=== PATIENT | male | born 1950 | race Caucasian/White ===

== ENCOUNTER 2022-04-06 10:55 | Emergency (ER) | payer MEDICARE, BC, SELFPAY ==
[2022-04-06] VITALS (32 sets, daily range): BP systolic 132–157; BP diastolic 74–95; PULSE 47–58; RESP 12–18; TEMP 36; O2SAT 95–99; BMI 27.6
--- NOTE | 2022-04-06 11:06 | ED_ITS ---
HPI - Chest Pain General Time Seen by Provider: 11:15 Date Seen: 04/06/22 Chief Complaint: Chest Pain Stated Complaint: Sever acid reflux Time Seen by Provider: 04/06/22 11:00 Source: patient, RN notes reviewed and old records reviewed Mode of arrival: ambulatory Limitations: no limitations History of Present Illness HPI narrative: Claudio is a very pleasant 71-year-old male with history of cardiac ablation secondary to arrhythmia, known ?valve issue?, as well as recent COVID in early February who comes to the emergency room for evaluation regarding chest pain. S tates that he did not feel well last night and thought that this was attributed to his GERD which she does have and is treated with a PPI. He states that he took Maalox before bed and slept good overnight. He says this morning he had the discomfort left anterior chest and took his antacid. Unfortunately did not help. He denies shortness of breath but does agree that he has some shortness of breath with activity but notes that he has been feeling this way since he had COVID 6 weeks ago. He notes that initially he still had a lingering cough although the phlegm has cleared up in the past week. He notes that his dizziness occasionally continues. Deep breathing does not increases discomfort. Does not improve his discomfort. He is wondering if perhaps this has something to do with a valve. He states that this past fall he had an appointment with his paper cup machine operator and was told that he has a valve issue that will need to be addressed in the spring. We are trying to get a hold of those records. Patient also notes that he has a history of colitis and has been experimenting with various medications. He states that medications often cause him dizziness. He has had no recent fever and denies any recent trauma. He has not taken any aspirin this morning Related Data Allergies Allergy/AdvReac Type Severity Reaction Status Date / Time Sulfa (Sulfonamide Allergy Intermediate Verified 04/06/22 11:16 Antibiotics) Review of Systems Status of ROS Reports: 10 or more systems reviewed and unremarkable except as noted in History and below Const Denies: fever, chills or fatigue Eyes Denies: change in vision ENMT Reports: throat pain (Irritation from coughing); Denies: neck pain, throat swelling or difficulty swallowing Cardio Reports: chest pain and shortness of breath with exertion; Denies: palpitations or swelling of feet/ankles Resp Reports: shortness of breath and cough GI Denies: abdominal pain, nausea, vomiting, diarrhea or difficulty swallowing Musculo Denies: neck pain or extremity pain Integ/Breast Denies: rash Neuro Reports: numbness in extremities (Chronic neuropathy); Denies: headache Psych Reports: anxiety Endo Denies: fatigue Allergy/Immuno Denies: throat swelling PFSH PFSH Social History Smoking Status: Never smoker How often do you have a drink containing alcohol: monthly or less How many standard drinks containing alcohol do you have on a typical day: 1 or 2 How often do you have six or more drinks on one occasion: Never AUDIT-C Alcohol total score: 1 Non-prescribed substance use: denies use Exam Narrative Exam Narrative: According to records: History of paroxysmal atrial fibrillation status post ablation History of of aortic valve stenosis History of elevated coronary artery calcium score Ulcerative colitis History of H pylori Ali History of neuropathy History of anxiety Const Vital Signs, click to edit/add: Vital Signs - 24 hr 04/06/22 11:05 04/06/22 12:00 04/06/22 12:18 Temperature 96.8 F L Pulse Rate 52 L Pulse Rate [Pulse Oximeter] 56 L 56 L Respiratory Rate 18 12 Blood Pressure Blood Pressure [Left Upper Arm] 157/79 H 136/76 Pulse Oximetry 98 97 95 Oxygen Delivery Method Room Air Room Air 04/06/22 12:30 04/06/22 12:33 04/06/22 11:30 Temperature Pulse Rate 50 L 52 L Pulse Rate [Pulse Oximeter] 57 L Respiratory Rate 13 Blood Pressure 149/74 H Blood Pressure [Left Upper Arm] 156/80 H Pulse Oximetry 97 97 98 Oxygen Delivery Method Room Air 04/06/22 12:34 04/06/22 12:45 04/06/22 13:00 Temperature Pulse Rate 56 L 53 L 53 L Pulse Rate [Pulse Oximeter] Respiratory Rate Blood Pressure Blood Pressure [Left Upper Arm] Pulse Oximetry 96 98 97 Oxygen Delivery Method 04/06/22 13:02 04/06/22 13:03 04/06/22 13:15 Temperature Pulse Rate 55 L 54 L 54 L Pulse Rate [Pulse Oximeter] Respiratory Rate Blood Pressure 132/76 Blood Pressure [Left Upper Arm] Pulse Oximetry 98 98 98 Oxygen Delivery Method 04/06/22 14:22 04/06/22 14:30 04/06/22 14:35 Temperature Pulse Rate 53 L 52 L 49 L Pulse Rate [Pulse Oximeter] Respiratory Rate Blood Pressure Blood Pressure [Left Upper Arm] Pulse Oximetry 97 97 97 Oxygen Delivery Method 04/06/22 14:44 04/06/22 14:45 04/06/22 15:00 Temperature Pulse Rate 52 L 52 L 47 L Pulse Rate [Pulse Oximeter] Respiratory Rate Blood Pressure 144/78 H Blood Pressure [Left Upper Arm] Pulse Oximetry 98 98 96 Oxygen Delivery Method 04/06/22 15:02 04/06/22 15:03 04/06/22 15:15 Temperature Pulse Rate 48 L 49 L 48 L Pulse Rate [Pulse Oximeter] Respiratory Rate Blood Pressure 137/81 Blood Pressure [Left Upper Arm] Pulse Oximetry 98 98 97 Oxygen Delivery Method 04/06/22 15:33 04/06/22 15:34 04/06/22 15:45 Temperature Pulse Rate 52 L 51 L Pulse Rate [Pulse Oximeter] Respiratory Rate Blood Pressure 141/95 H Blood Pressure [Left Upper Arm] Pulse Oximetry 97 98 Oxygen Delivery Method 04/06/22 16:00 04/06/22 16:05 04/06/22 16:15 Temperature Pulse Rate 57 L 58 L 56 L Pulse Rate [Pulse Oximeter] Respiratory Rate Blood Pressure Blood Pressure [Left Upper Arm] Pulse Oximetry 99 97 98 Oxygen Delivery Method 04/06/22 16:30 04/06/22 16:35 04/06/22 16:45 Temperature Pulse Rate 55 L 53 L 54 L Pulse Rate [Pulse Oximeter] Respiratory Rate Blood Pressure Blood Pressure [Left Upper Arm] Pulse Oximetry 98 97 97 Oxygen Delivery Method Patient is alert and oriented. Very well-spoken gentleman. Does not appear to be in any acute distress but obviously somewhat anxious. Eyes are clear as is oral cavity. No exudate in the posterior oropharynx. Neck is supple without lymphadenopathy. Heart with a bradycardic rate normal rhythm. Says 3/6 systo lic murmur auscultated. Occasional split S2 Lungs are clear to auscultation Abdomen soft nontender Lower extremity show symmetrical pedal pulses with scant peripheral edema. Moving all extremities. Mentating normally. Documenting provider has reviewed patient's vital signs: yes Course Course Hospital Course: Differential diagnosis includes but is not limited to acute coronary syndrome, PE, aortic dissection, pneumonia, esophagitis, esophageal spasm with reflux, critical aortic valve stenosis. At this time IV will be placed. Will obtain chest x-ray, blood work to include CBC, comprehensive, CRP, D-dimer, troponin. Aspirin 324 p.o. x1. Patient declines any further pain medications Primary paper cup machine operator Dr. Arroyo at [facility] Reevaluation(s) Reevaluation #1: Patient notes that he is feeling improved. At this point he has only received p.o. aspirin. He will be undergoing CT of the chest given pain out of proportion to exam and reassuring EKG as well as troponin. He does have a mild elevation of D-dimer. PE study is currently pending and will give normal saline 500 mL for protection of kidneys. White count slightly depressed which is a common finding with COVID infection. Kidney function and LFTs as well as CRP all reassuring. Recheck of EKG and troponin at 1315. Reevaluation #2: 2nd EKG sinus bradycardia without any acute ST or T-wave changes and 2nd troponin is negative. Chest CT without evidence of PE or pneumonia. Currently awaiting phone call from cardiology. Consultations Consultation #1: [employer] informed of reassuring EKGs as well as negative cardiac enzymes. Also of note there was moderate LAD and mild circumflex/RCA calcification noted on CT. No other worrisome findings on CT. Time: 16:03 Vital Signs Vital signs: Initial Vital Signs Temperature 96.8 F L 04/06/22 11:05 Temperature Source Temporal Artery Scan 04/06/22 11:05 Pulse Rate 56 L 04/06/22 11:05 Respiratory Rate 18 04/06/22 11:05 Blood Pressure 157/79 H 04/06/22 11:05 Blood Pressure Mean 105 04/06/22 11:05 Blood Pressure Position Supine 04/06/22 11:05 Pulse Oximetry 98 04/06/22 11:05 Oxygen Delivery Method 04/06/22 11:05 Vital Signs Temperature 96.8 F L 04/06/22 11:05 Pulse Rate 56 L 04/06/22 11:05 Respiratory Rate 18 04/06/22 11:05 Blood Pressure 157/79 H 04/06/22 11:05 Pulse Oximetry 98 04/06/22 11:05 Oxygen Delivery Method 04/06/22 11:05 Temperature 96.8 F L 04/06/22 11:05 Pulse Rate 54 L 04/06/22 16:45 Respiratory Rate 12 04/06/22 12:00 Blood Pressure 141/95 H 04/06/22 15:33 Pulse Oximetry 97 04/06/22 16:45 Oxygen Delivery Method 04/06/22 12:00 MDM - Chest Pain MDM Narrative Medical decision making narrative: 1. Atypical chest pain-patient received 324 mg aspirin only in the ED. Claudio has 2 EKGs and cardiac enzymes that are very reassuring with no evidence of acute coronary syndrome. Third troponin was done per paper cup machine operator's request and was negative. This time was greater than 4 hour span. Patient has had resolution of his pain at this time. He did have Protonix prior to coming here. There is no evidence of PE, aortic dissection or pneumonia on CT. I did have the pleasur e of speaking to Cardiology Dr. Roberts. Follow-up will be with their primary MD Dr. Rosenberg at the [facility]. Cardiology request the scheduling of an outpatient echocardiogram and stress test. Of course, if patient worsens prior to this test I would like him to return to the ER. Would also ask that he only participate in low intensity activity. At this time suggest esophageal spasm or GERD as the cause of his discomfort. Pain was not reproducible with palpation to suggest intercostal inflammation. 2. Recent COVID-still has a cough but no evidence of pneumonia on x-ray. 3. History of GERD-patient will increase his Protonix to twice daily temporarily. 3. Disposition -home with his . Return for worsening or recurrent symptoms. Medical Records Data Attestation: I reviewed the patient's medical records. Lab Data Attestation: I reviewed the patient's lab results. Labs: Lab Results 04/06/22 04/06/22 04/06/22 Range/Units 11:40 11:40 11:40 WBC 4.10 L (4.50-11.00) K/uL RBC 3.93 L (4.30-5.90) m/uL Hgb 13.2 L (13.5-17.5) gm/dL Hct 38.8 (37.0-53.0) % MCV 99 (80-100) fL MCH 34 (26-34) pg MCHC 34 (32-36) gm/dL RDW Coeff of Jim 16.0 H (11.5-15.5) % Plt Count 257 (140-440) K/uL Neut % (Auto) 51.5 (42.0-72.0) % Lymph % (Auto) 30.0 (20-44) % Surry % (Auto) 7.1 (0.0-11.0) % Eos % (Auto) 10.5 H (0.0-7.0) % Baso % (Auto) 0.2 (0.0-3.0) % Neut # (Auto) 2.10 (1.7-7.0) K/uL Lymph # (Auto) 1.20 (0.90-2.90) K/uL Surry # (Auto) 0.30 (0.00-0.90) K/UL Eos # (Auto) 0.40 (0.00-0.50) K/uL Baso # (Auto) 0.00 (0.00-0.30) K/uL Abs Immat Gran (auto) 0.00 (0.00-0.30) K/uL Imm/Tot Granulo (auto) 0.7 % D-Dimer Quant (PE/DVT) 0.78 H (0.00-0.50) ug/ml Sodium 140 (135-149) mmol/L Potassium 4.5 (3.6-5.1) mmol/L Chloride 103 (96-114) mmol/L Carbon Dioxide 33 H (20-32) mmol/L BUN 17 (7-30) mg/dL Creatinine 0.8 (0.5-1.5) mg/dL Estimated Creat Clear 77.63 Estimated GFR 94 ml/min Glucose 82 (60-115) mg/dL Calcium 9.3 (8.4-10.6) mg/dL Total Bilirubin 0.9 (0.1-1.5) mg/dL AST 28 (12-35) U/L ALT 21 (4-50) U/L Alkaline Phosphatase 65 (40-150) U/L C-Reactive Protein < 0.5 L (0.5-1.0) mg/dL Total Protein 7.2 (6.0-8.3) g/dL Albumin 4.5 (3.3-5.0) g/dL Influenza Type A Ag (Negative) Influenza Type B Ag (Negative) SARS-CoV-2 Ag (Rapid) POC Troponin I (0.01-0.04) ng/ml 04/06/22 04/06/22 04/06/22 Range/Units 11:40 12:08 12:08 WBC (4.50-11.00) K/uL RBC (4.30-5.90) m/uL Hgb (13.5-17.5) gm/dL Hct (37.0-53.0) % MCV (80-100) fL MCH (26-34) pg MCHC (32-36) gm/dL RDW Coeff of Jim (11.5-15.5) % Plt Count (140-440) K/uL Neut % (Auto) (42.0-72.0) % Lymph % (Auto) (20-44) % Surry % (Auto) (0.0-11.0) % Eos % (Auto) (0.0-7.0) % Baso % (Auto) (0.0-3.0) % Neut # (Auto) (1.7-7.0) K/uL Lymph # (Auto) (0.90-2.90) K/uL Surry # (Auto) (0.00-0.90) K/UL Eos # (Auto) (0.00-0.50) K/uL Baso # (Auto) (0.00-0.30) K/uL Abs Immat Gran (auto) (0.00-0.30) K/uL Imm/Tot Granulo (auto) % D-Dimer Quant (PE/DVT) (0.00-0.50) ug/ml Sodium (135-149) mmol/L Potassium (3.6-5.1) mmol/L Chloride (96-114) mmol/L Carbon Dioxide (20-32) mmol/L BUN (7-30) mg/dL Creatinine (0.5-1.5) mg/dL Estimated Creat Clear Estimated GFR ml/min Glucose (60-115) mg/dL Calcium (8.4-10.6) mg/dL Total Bilirubin (0.1-1.5) mg/dL AST (12-35) U/L ALT (4-50) U/L Alkaline Phosphatase (40-150) U/L C-Reactive Protein (0.5-1.0) mg/dL Total Protein (6.0-8.3) g/dL Albumin (3.3-5.0) g/dL Influenza Type A Ag Negative (Negative) Influenza Type B Ag Negative (Negative) SARS-CoV-2 Ag (Rapid) Cancelled POC Troponin I 0.00 L (0.01-0.04) ng/ml 04/06/22 04/06/22 Range/Units 13:15 16:20 WBC (4.50-11.00) K/uL RBC (4.30-5.90) m/uL Hgb (13.5-17.5) gm/dL Hct (37.0-53.0) % MCV (80-100) fL MCH (26-34) pg MCHC (32-36) gm/dL RDW Coeff of Jim (11.5-15.5) % Plt Count (140-440) K/uL Neut % (Auto) (42.0-72.0) % Lymph % (Auto) (20-44) % Surry % (Auto) (0.0-11.0) % Eos % (Auto) (0.0-7.0) % Baso % (Auto) (0.0-3.0) % Neut # (Auto) (1.7-7.0) K/uL Lymph # (Auto) (0.90-2.90) K/uL Surry # (Auto) (0.00-0.90) K/UL Eos # (Auto) (0.00-0.50) K/uL Baso # (Auto) (0.00-0.30) K/uL Abs Immat Gran (auto) (0.00-0.30) K/uL Imm/Tot Granulo (auto) % D-Dimer Quant (PE/DVT) (0.00-0.50) ug/ml Sodium (135-149) mmol/L Potassium (3.6-5.1) mmol/L Chloride (96-114) mmol/L Carbon Dioxide (20-32) mmol/L BUN (7-30) mg/dL Creatinine (0.5-1.5) mg/dL Estimated Creat Clear Estimated GFR ml/min Glucose (60-115) mg/dL Calcium (8.4-10.6) mg/dL Total Bilirubin (0.1-1.5) mg/dL AST (12-35) U/L ALT (4-50) U/L Alkaline Phosphatase (40-150) U/L C-Reactive Protein (0.5-1.0) mg/dL Total Protein (6.0-8.3) g/dL Albumin (3.3-5.0) g/dL Influenza Type A Ag (Negative) Influenza Type B Ag (Negative) SARS-CoV-2 Ag (Rapid) POC Troponin I 0.00 L 0.00 L (0.01-0.04) ng/ml Imaging Data Chest x-ray: Attestation: I have reviewed the pertinent imaging results. My impression: No noted infiltrates or acute findings by my read. CT scan - chest: Attestation: I have reviewed the pertinent imaging results. Radiologist's impression: here is no sign of pulmonary embolism, with normal enhancement and branching of the pulmonary arteries. A calcified granuloma is seen in the posterior and medial right lower lobe toward the lung base. There is mild linear density in the posterior lung bases, left greater than right consistent with scarring from previous inflammatory disease. The lungs are otherwise clear with no sign of significant infiltrate or mass. There is no sign of mediastinal or hilar mass or adenopathy. A calcified granuloma is present in the right subcarinal region. There is moderate LAD and mild LCX and RCA coronary calcification. Heart is otherwise normal in appearance. There is age appropriate appearance of the thoracic aorta and ascending great vessels. There is no sign of supraclavicular or axillary mass or adenopathy. The visualized superior liver, pancreas, kidneys, and adrenals are normal in appearance. Calcified granulomata seen in the spleen. The osseous structures are normal in appearance for the patient`s age. ? IMPRESSION: No sign of pulmonary embolism. Previous granulomatous disease. Mild left greater than right posterior basilar scarring. ECG Data Attestation: I personally reviewed and interpreted this ECG as follows: ECG interpretation date: 04/06/22 Interpretation: By my read EKG shows sinus bradycardia at a rate of 54. I do not note any acute ST or T-wave changes. QT corrected 415. EKG 2. Shows sinus bradycardia at a rate of [address] or T-wave changes. Discharge Plan Discharge Clinical Impression: Atypical chest pain, Cardiac murmur Patient Disposition: Home, Self-Care Condition: Improved Additional Instructions: 1. Take your prescription Protonix twice a day. 2. No intense activity until you are seen by Dr. Rosenberg [employer]'s request that you have an outpatient stress test and echocardiogram to reassess the aortic valve which currently shows moderate aortic stenosis. 3. Returns/seek medical attention for worsening symptoms. Follow Up/Referrals: Blayne Rosenberg MD [Primary Care Provider] - Stand Alone Forms: [employer] Info Instructions
--- NOTE | 2022-04-06 11:30 | CRLHL7_ITS ---
For Patients: As a result of the Cures Act, medical imaging exams and procedure reports are released immediately into your electronic medical record. You may view this report before your referring provider. If you have questions, please contact your health care provider. INDICATION: Chest pain TECHNIQUE: Chest 1 view COMPARISON: 04/03/2017 FINDINGS: Dependent scarring noted in both lung bases. Cardiac silhouette is upper limits of normal. There is slight tortuosity of the aorta. No pneumothorax or CHF. Degenerative changes. IMPRESSION: Bibasilar atelectasis/scarring. Dictated by Arturo Smith MD @ 04/08/2022 8:36:19 AM (Electronically Signed)
--- NOTE | 2022-04-06 11:45 | ED.NURSE ---
#20 SL placed L AC
[2022-04-06] MEDS: ASPIRIN 81 MG TAB.CHEW 324 MG PO (11:54)
[2022-04-06 12:05] LABS: Basophils Percent Auto 0.2 % (0.0-3.0); Eosinophils Percent Auto 10.5 % (0.0-7.0); Hematocrit 38.8 % (37.0-53.0); Hemoglobin* 13.2 gm/dL (13.5-17.5); Immature Granulocytes Pct Auto 0.7 %; Mean Corpuscular HGB Conc 34 gm/dL (32-36); Mean Corpuscular Hemoglobin 34 pg (26-34); Mean Corpuscular Volume 99 fL (80-100); Monocytes Percent Auto 7.1 % (0.0-11.0); Neutrophils Percent Auto 51.5 % (42.0-72.0); Platelet Count* 257 K/uL (140-440); Red Blood Count 3.93 m/uL (4.30-5.90)
[2022-04-06 12:16] LABS: Albumin* 4.5 g/dL (3.3-5.0); Chloride* 103 mmol/L (96-114)
[2022-04-06 12:17] LABS: Potassium* 4.5 mmol/L (3.6-5.1); Sodium* 140 mmol/L (135-149)
[2022-04-06 12:21] LABS: Alanine Aminotransferase* 21 U/L (4-50); Alkaline Phosphatase* 65 U/L (40-150); Aspartate Amino Transferase* 28 U/L (12-35); Bilirubin Total* 0.9 mg/dL (0.1-1.5); Blood Urea Nitrogen* 17 mg/dL (7-30); Calcium* 9.3 mg/dL (8.4-10.6); Carbon Dioxide* 33 mmol/L (20-32); Creatinine* 0.8 mg/dL (0.5-1.5); D Dimer Quantitative* 0.78 ug/ml (0.00-0.50); Est. Creatinine Clearance* 77.63; Estimated Glomerular Filt Rate 94 ml/min; Glucose* 82 mg/dL (60-115); Slide Review Reflex No; Total Protein* 7.2 g/dL (6.0-8.3)
[2022-04-06 12:34] LABS: C Reactive Protein* < 0.5 mg/dL (0.5-1.0)
--- NOTE | 2022-04-06 12:39 | CRLHL7_ITS ---
For Patients: As a result of the Century Cures Act, medical imaging exams and procedure reports are released immediately into your electronic medical record. You may view this report before your referring provider. If you have questions, please contact your health care provider. INDICATION: Chest pain. COMPARISON: None available. TECHNIQUE: CT examination of the chest was performed with the uneventful intravenous administration of 95 cc of Isovue 370 while 1.5 mm thick axial sections were obtained from above the apices of the lungs through the mid renal level. Please note that all CT scans at this facility use dose modulation, iterative reconstruction, and/or weight-based dosing when appropriate to reduce radiation dose to as low as reasonably achievable. FINDINGS: : There is no sign of pulmonary embolism, with normal enhancement and branching of the pulmonary arteries. A calcified granuloma is seen in the posterior and medial right lower lobe toward the lung base. There is mild linear density in the posterior lung bases, left greater than right consistent with scarring from previous inflammatory disease. The lungs are otherwise clear with no sign of significant infiltrate or mass. There is no sign of mediastinal or hilar mass or adenopathy. A calcified granuloma is present in the right subcarinal region. There is moderate LAD and mild LCX and RCA coronary calcification. Heart is otherwise normal in appearance. There is age appropriate appearance of the thoracic aorta and ascending great vessels. There is no sign of supraclavicular or axillary mass or adenopathy. The visualized superior liver, pancreas, kidneys, and adrenals are normal in appearance. Calcified granulomata seen in the spleen. The osseous structures are normal in appearance for the patient`s age. IMPRESSION: No sign of pulmonary embolism. Previous granulomatous disease. Mild left greater than right posterior basilar scarring. Please note that all CT scans at this facility use dose modulation, iterative reconstruction, and/or weight-based dosing when appropriate to reduce radiation dose to as low as reasonably achievable. Dictated by Vikash Salazar MD @ 04/06/2022 2:23:43 PM (Electronically Signed)
[2022-04-06 12:46] LABS: Influenza Type A Negative (Negative); Influenza Type B Negative (Negative)
== END 2022-04-06 17:22 | disposition home or self-care (01) ==
PROVIDERS: Emergency Provider Family Medicine; PCP Family Medicine
DX: R07.89 Other chest pain (principal); R01.1 Cardiac murmur, unspecified
CPT/HCPCS: 36415; 71045; 71260; 80053; 84484; 85025; 85379; 86140; 87426; 87804; 93005; 94761; 99285; A9270; Q9967

== ENCOUNTER 2022-04-23 10:28 | Outpatient (CLI) | payer MEDICARE, BC, SELFPAY | END 2022-04-23 10:29 | disposition home or self-care (01) | LOC: RAD 10:29 | PROVIDERS: PCP Family Medicine; Visit Provider Family Medicine | DX: I35.0 Nonrheumatic aortic (valve) stenosis (principal); I51.7 Cardiomegaly; I35.1 Nonrheumatic aortic (valve) insufficiency | CPT/HCPCS: 93306 ==

== ENCOUNTER 2023-01-15 08:58 | Observation (INO) | payer MEDICARE, BC, SELFPAY ==
[2023-01-15] VITALS (28 sets, daily range): BP systolic 118–165; BP diastolic 64–85; PULSE 42–65; RESP 14–20; TEMP 36–36.7; O2SAT 95–99; BMI 27.2; BMI 26.8
--- NOTE | 2023-01-15 09:16 | ED_ITS ---
HPI - Chest Pain General Time Seen by Provider: 09:16 Date Seen: 01/15/23 Chief Complaint: Chest Pain Stated Complaint: weakness,lightheaded, chest pains last night Time Seen by Provider: 01/15/23 09:08 Source: patient and RN notes reviewed Mode of arrival: ambulatory Limitations: no limitations History of Present Illness HPI narrative: This 72-year-old male is ambulatory to the ED accompanied by his with chest pain. He was at [employer], sleeping in their camper overnight. He was down at [employer] riding horse yesterday. There is no injury. He awoke last night with left shoulder pain, did not seem to matter how he moved his arm. When he awoke this morning around 7, had some mild substernal to left chest pain that seems to go into the left shoulder and arm. There is no shortness of breath. He states it is just mild maybe at most about a 2. It did not worsen walking in here today but he states he went slow. There is no associated GI symptoms. He was seen here in March of 2022 with atypical chest pain that was attributed to a GERD attack. He states this was much different and that was worse at that time. He did get the CT PE study done for an elevated D-dimer at that time and there was moderate LAD and mild circumflex and RCA calcification. This patient is also known to have severe aortic stenosis he a that cyst will that I 1999 to do with normal LV size, moderate increased wall thickness, normal global systolic function, EF 63%, normal RV size and function, mildly enlarged left atrium, aortic valve is calcified, severe stenosis and mild to moderate regurgitation, valve area is 1.05 cm2. He notes no respiratory symptoms with this. Does feel little dizzy today with it. He does not take any aspirin. Other past medical history is reported to be significant for history of cardiac ablation for arrhythmia, COVID February of 2022, GERD, history of colitis. Patient notes that he did just see the technician plant and maintenance 2 days ago, besides needing his aortic valve taking care of, she thought he may end up with a pacemaker as he is developing bradycardia. MD complaint: chest pain Related Data Home Medications Medication Instructions Recorded Confirmed balsalazide 750 mg capsule 2,250 mg PO 3XD 01/15/23 01/15/23 colestipol 1 gram tablet g PO 01/15/23 flecainide 50 mg tablet 50 mg PO Q12H 01/15/23 01/15/23 mercaptopurine 50 mg tablet 100 mg PO DAILY 01/15/23 01/15/23 mesalamine 1,000 mg rectal 1,000 mg IA QPM 01/15/23 01/15/23 suppository pantoprazole 40 mg tablet,delayed 40 mg PO BID 01/15/23 01/15/23 release rosuvastatin 10 mg tablet 10 mg PO QPM 01/15/23 01/15/23 Allergies Allergy/AdvReac Type Severity Reaction Status Date / Time Sulfa (Sulfonamide Allergy Intermediate Verified 04/06/22 11:16 Antibiotics) gabapentin AdvReac leg Verified 01/15/23 09:11 swelling sertraline AdvReac Verified 01/15/23 09:11 Review of Systems Status of ROS Reports: 6 or more systems reviewed and unremarkable except as noted in History and below PFSH PFS Social History Smoking Status: Never smoker Do you use any of these nicotine containing products: None Second hand tobacco smoke exposure: No How often do you have a drink containing alcohol: monthly or less How many standard drinks containing alcohol do you have on a typical day: 1 or 2 How often do you have six or more drinks on one occasion: Never AUDIT-C Alcohol total score: 1 Non-prescribed substance use: denies use Exam Const Vital Signs, click to edit/add: Vital Signs - 24 hr 01/15/23 09:13 01/15/23 09:15 Temperature 96.8 F L Pulse Rate [Right Pulse Oximeter] 53 L Respiratory Rate 14 Blood Pressure [Left Upper Arm] 151/73 H Pulse Oximetry 99 96 Oxygen Delivery Method Room Air Claudio is a very pleasant 72-year-old male ambulatory in the ED of his own accord. Sclera clear, pupils equal, conjugate gaze, speech is normal, symmetrical facial function. Neck is supple, do not appreciate any jugular venous distension, no cervical adenopathy or thyromegaly masses or nodules. He is able to sit up, lungs are clear, good air entry, no wheezing or crackles, no tachypnea. CV is slow but regular, harsh holosystolic murmur heard best along the right upper sternal border. He has normal S1 and S2, do not hear an S3 or S4. Abdomen is soft, no rebound or guarding, no organomegaly. He has no lower extremity edema but does wear compression stockings. I can mobilize his left shoulder and left upper extremity, cannot reproduce his pain. He has no palpable tenderness over the shoulder or the left chest wall, sternal area. Documenting provider has reviewed patient's vital signs: yes Course Course ED Course: Claudio will be monitored on cardiac monitoring and pulse oximetry. His initial EKG shows bradycardia but is otherwise stable. His symptoms are concerning for angina versus possible unstable angina in the setting of his aortic stenosis and calcifications seen on CT of his coronary arteries in March of 2022. Will rule out non STEMI with troponin. Other etiologies could be atypical chest pain, infectious etiology including but not limited to things like COVID or pneumonia. Will consider thromboembolic disease and do a screening D-dimer. He is exhibiting bradycardia at this time. Will get portable chest x-ray but do not have any clinical concern with his physical examination of congestive heart failure. Full appropriate complement of labs will be obtained. Reevaluation(s) Time of Reevaluation #1: 11:43 Reevaluation #1: Patient is getting a repeat EKG and troponin. Maybe still has some sense of chest discomfort, states he overall feels almost back to normal but has some global generalized body achiness today. He states the doctors tones take Tylenol but that never works. He does have some chronic foot and ankle issues. He just generally feels a bit more achy today. Will see where his 2nd troponin and follow-up EKG are. He is in a sinus bradycardia in the upper 40s and seems to be asymptomatic from it on the monitor when I am talking to him. Have reviewed that the labs and chest x-ray to this point are reassuringly normal. Time of Reevaluation #2: 12:20 Consultations Consultation #1: Spoke with Dr. Pfeiffer on-call Cardiology for [facility]. He thinks this patient should be monitored for 24 hours on telemetry and if stable can be DC to home. They will work to expedite his valve replacement on an outpatient basis. Obviously if complications we are to notify them. Did subsequently review this with the patient, he would prefer to go home but understands the rationale for keeping him and does agree to stay. Did subsequently speak to our hospitalist Dr. Mcdaniels and he accepts patient. Time: 12:43 Vital Signs Vital signs: Initial Vital Signs Temperature 96.8 F L 01/15/23 09:13 Temperature Source Temporal Artery Scan 01/15/23 09:13 Pulse Rate 53 L 01/15/23 09:13 Respiratory Rate 14 01/15/23 09:13 Blood Pressure 151/73 H 01/15/23 09:13 Blood Pressure Mean 99 01/15/23 09:13 Blood Pressure Position Sitting 01/15/23 09:13 Pulse Oximetry 99 01/15/23 09:13 Oxygen Delivery Method Room Air 01/15/23 09:13 Vital Signs Temperature 96.8 F L 01/15/23 09:13 Pulse Rate 53 L 01/15/23 09:13 Respiratory Rate 14 01/15/23 09:13 Blood Pressure 151/73 H 01/15/23 09:13 Pulse Oximetry 99 01/15/23 09:13 Oxygen Delivery Method Room Air 01/15/23 09:13 Temperature 96.8 F L 01/15/23 09:13 Pulse Rate 53 L 01/15/23 09:13 Respiratory Rate 14 01/15/23 09:13 Blood Pressure 151/73 H 01/15/23 09:13 Pulse Oximetry 96 01/15/23 09:15 Oxygen Delivery Method Room Air 01/15/23 09:13 MDM - Chest Pain Lab Data Attestation: I reviewed the patient's lab results. Labs: Lab Results 01/15/23 01/15/23 01/15/23 Range/Units 09:15 09:51 11:38 WBC 3.30 L (4.50-11.00) K/uL RBC 3.42 L (4.30-5.90) m/uL Hgb 12.7 L (13.5-17.5) gm/dL Hct 36.0 L (37.0-53.0) % MCV 105 H (80-100) fL MCH 37 H (26-34) pg MCHC 35 (32-36) gm/dL RDW Coeff of Jim 14.1 (11.5-15.5) % Plt Count 200 (140-440) K/uL Neut % (Auto) 64.5 (42.0-72.0) % Lymph % (Auto) 25.2 (20-44) % [place] % (Auto) 5.8 (0.0-11.0) % Eos % (Auto) 4.2 (0.0-7.0) % Baso % (Auto) 0.3 (0.0-3.0) % Neut # (Auto) 2.10 (1.7-7.0) K/uL Lymph # (Auto) 0.80 L (0.90-2.90) K/uL [place] # (Auto) 0.20 (0.00-0.90) K/UL Eos # (Auto) 0.10 (0.00-0.50) K/uL Baso # (Auto) 0.00 (0.00-0.30) K/uL Abs Immat Gran (auto) 0.00 (0.00-0.30) K/uL Imm/Tot Granulo (auto) 0.0 % Diff Slide Review Acceptable Review (Acceptable) D-Dimer Quant (PE/DVT) 0.54 H (0.00-0.50) ug/ml Sodium 141 (135-149) mmol/L Potassium 4.4 (3.6-5.1) mmol/L Chloride 105 (96-114) mmol/L Carbon Dioxide 29 (20-32) mmol/L Anion Gap 7 (7-15) mEq/L BUN 18 (7-30) mg/dL Creatinine 0.7 (0.5-1.5) mg/dL Estimated Creat Clear 76.49 Estimated GFR 97 ml/min Glucose 99 (60-115) mg/dL Lactate 0.9 (0.5-1.9) mmol/L Calcium 9.6 (8.4-10.6) mg/dL Magnesium 2.2 (1.5-2.6) mg/dL Total Bilirubin 1.3 (0.1-1.5) mg/dL AST 26 (12-35) U/L ALT 18 (4-50) U/L Alkaline Phosphatase 59 (40-150) U/L C-Reactive Protein < 0.5 L (0.5-1.0) mg/dL NT-Pro-B Natriuret Pep 121 pg/mL Total Protein 7.2 (6.0-8.3) g/dL Albumin 4.4 (3.3-5.0) g/dL SARS-CoV-2 (PCR) Negative SARS-CoV-2 (Negative) Influenza Type A (PCR) Negative PCR FLU A (Negative) Influenza Type B (PCR) Negative PCR FLU B (Negative) RSV (PCR) Negative PCR RSV (Negative) POC Troponin I 0.01 0.00 L (0.01-0.04) ng/ml Imaging Data Chest x-ray: Attestation: I have reviewed the pertinent imaging results. My impression: I see no acute pathology on my preliminary review, await Radiology over-read. Radiologist's impression: Patient: [facility] Facility:?[facility] Patient ID:?[id number] Site Patient ID:?[id number]. Site :?[id number] Study:?XRay Chest Portable-01/15/2023 9:45:13 AM Ordering Physician:Daniella Sterling Final Report: INDICATION: Chest pain. COMPARISON: Chest x-ray dated 06 April 2022. FINDINGS: Two portable chest x-rays show a normal cardiac silhouette. Atherosclerotic aorta. The lungs show no focal pulmonary opacities. Sharp pleural margins. No pneumothorax. IMPRESSION: No evidence of acute pulmonary abnormalities. Dictated by Dilan Johnson MD @ 01/15/2023 10:28:04 AM Dictated by: Dilan Johnson MD @ 01/15/2023 10:28:16 (Electronic Signature) ECG Data Attestation: I personally reviewed and interpreted this ECG as follows: (Sinus bradycardia with a PAC seen. Rate is 53 beats per minute. No ischemic change. QT corrected 437 milliseconds.) ECG interpretation date: 01/15/23 ECG interpretation time: 09:17 Interpretation: Follow-up EKG shows sinus bradycardia, 43 beats per minute. No acute ischemic change. QT corrected 425 milliseconds. Critical Care Time Critical Care Time Critical Care Time: No Discharge Plan Discharge Clinical Impression: Aortic stenosis, severe, Chest pain Patient Disposition: Admitted As Observation Prescriptions: No Action pantoprazole 40 mg tablet,delayed release (DR/EC) 40 mg PO BID flecainide 50 mg tablet 50 mg PO Q12H mercaptopurine 50 mg tablet 100 mg PO DAILY balsalazide 750 mg capsule 2,250 mg PO 3XD colestipol 1 gram tablet PO rosuvastatin 10 mg tablet 10 mg PO QPM mesalamine 1,000 mg suppository 1,000 mg IA QPM Follow Up/Referrals: Blayne Rosenberg MD [Primary Care Provider] -
--- NOTE | 2023-01-15 09:29 | CRLHL7_ITS ---
For Patients: As a result of the Cures Act, medical imaging exams and procedure reports are released immediately into your electronic medical record. You may view this report before your referring provider. If you have questions, please contact your health care provider. INDICATION: Chest pain. COMPARISON: Chest x-ray dated 06 April 2022. FINDINGS: Two portable chest x-rays show a normal cardiac silhouette. Atherosclerotic aorta. The lungs show no focal pulmonary opacities. Sharp pleural margins. No pneumothorax. IMPRESSION: No evidence of acute pulmonary abnormalities. Dictated by Dilan Johnson MD @ 01/15/2023 10:28:04 AM Dictated by: Dilan Johnson MD @ 01/15/2023 10:28:16 (Electronically Signed)
[2023-01-15 09:34] LABS: Troponin, Point-of-Care* 0.01 ng/ml (0.01-0.04)
[2023-01-15 09:42] LABS: Lactate* 0.9 mmol/L (0.5-1.9)
[2023-01-15 09:44] LABS: Basophils Percent Auto 0.3 % (0.0-3.0); Eosinophils Percent Auto 4.2 % (0.0-7.0); Hemoglobin* 12.7 gm/dL (13.5-17.5); Lymphocytes Percent Auto 25.2 % (20-44); Mean Corpuscular HGB Conc 35 gm/dL (32-36); Mean Corpuscular Hemoglobin 37 pg (26-34); Mean Corpuscular Volume 105 fL (80-100); Monocytes Percent Auto 5.8 % (0.0-11.0); Neutrophils Percent Auto 64.5 % (42.0-72.0); Platelet Count* 200 K/uL (140-440); RDW Coefficient of Variation % 14.1 % (11.5-15.5); Red Blood Count 3.42 m/uL (4.30-5.90)
[2023-01-15 09:51] LABS: Slide Review Reflex Yes
[2023-01-15] MEDS: ASPIRIN 81 MG TAB.CHEW 324 MG PO (09:55)
[2023-01-15 10:01] LABS: Albumin* 4.4 g/dL (3.3-5.0); Chloride* 105 mmol/L (96-114); Sodium* 141 mmol/L (135-149)
[2023-01-15 10:02] LABS: Potassium* 4.4 mmol/L (3.6-5.1)
[2023-01-15 10:04] LABS: Alanine Aminotransferase* 18 U/L (4-50); Alkaline Phosphatase* 59 U/L (40-150); Anion Gap 7 mEq/L (7-15); Aspartate Amino Transferase* 26 U/L (12-35); Bilirubin Total* 1.3 mg/dL (0.1-1.5); Carbon Dioxide* 29 mmol/L (20-32); Creatinine* 0.7 mg/dL (0.5-1.5); D Dimer Quantitative* 0.54 ug/ml (0.00-0.50); Est. Creatinine Clearance* 76.49; Estimated Glomerular Filt Rate 97 ml/min; Total Protein* 7.2 g/dL (6.0-8.3)
[2023-01-15 10:05] LABS: Blood Urea Nitrogen* 18 mg/dL (7-30); Calcium* 9.6 mg/dL (8.4-10.6); Glucose* 99 mg/dL (60-115); Magnesium* 2.2 mg/dL (1.5-2.6)
[2023-01-15 10:17] LABS: C Reactive Protein* < 0.5 mg/dL (0.5-1.0); NT Pro B Type NatriureticPept* 121 pg/mL
[2023-01-15 10:31] LABS: Slide Review Acceptable Review (Acceptable)
[2023-01-15 10:40] LABS: PCR FLU A Negative PCR FLU A (Negative); PCR FLU B Negative PCR FLU B (Negative); PCR RSV Negative PCR RSV (Negative)
[2023-01-15 11:12] LABS: SARS PCR* Negative SARS-CoV-2 (Negative)
--- NOTE | 2023-01-15 13:41 | ED.NURSE ---
Patient accepted to [facility], on tele box [id number].
--- NOTE | 2023-01-15 14:37 | PM.IMHP1 ---
Hospitalist- H&P: HPI History of Present Illness Date Seen: 01/15/23 Chief complaint: weakness,lightheaded, chest pains last night Narrative: Claudio Young is a 72 year old male with past medical history noted below including severe aortic stenosis (follows with [facility] Cardiology, has plan for TAVR and possible PPM in February) presenting for evalutation of chest discomfort. The patient is currently chest pain free and denies SOB. However, yesterday and this morning he had intermittent left sided chest pain that was dull. He also felt dizzy. [place] at his cabin and riding horses as well. He presented to ED today where HR was noted to be in 40s. Initial Troponin Negative. EKG with sinus bradycardia. His case was discussed with [facility] Cardiology who recommended hospital tele monitoring and repeat enzymes. He currently endorses no other symptoms. cxr IMPRESSION: No evidence of acute pulmonary abnormalities. Review of Systems Status of ROS: Reports: 10 or more systems reviewed and unremarkable except as noted in History and below PFSH PFS Social History What is your current living situation?: I presently have a place to live Problems where you live: no known problems Problems where you live details: none In the past 12 months, utilities in danger of being shut off: no In past 12 months, lack of transportation kept you from medical appts, meetings, work, or getting things needed for daily living: no In the past 12 mos, have been you worried that your food would run out before you had money to buy more?: never true In the past 12 mos, the food you bought just didn't last and you didn't have money to buy more?: never true Highest level of school completed/degree received: Associate degree: occupational, technical, vocational program Smoking Status: Never smoker Do you use any of these nicotine containing products: None Second hand tobacco smoke exposure: No How often do you have a drink containing alcohol: 2-3 times a week How many standard drinks containing alcohol do you have on a typical day: 1 or 2 How often do you have six or more drinks on one occasion: Never AUDIT-C Alcohol total score: 3 Non-prescribed substance use: denies use Caffeine: No How often does anyone, including family, friends and others, physically hurt you: never How often does anyone, including family, friends and others, insult or talk down to you: never How often does anyone, including family, friends and others, threaten you with harm: never How often does anyone, including family, friends and others, scream or curse at you: never service: Yes Meds Home Medications and Allergies Home Medications Medication Instructions Recorded Confirmed Type acetaminophen 650 mg 1,300 mg PO TID 01/15/23 01/15/23 History tablet,extended release (8 Hour Pain Reliever) balsalazide 750 mg capsule 2,250 mg PO TID 01/15/23 01/15/23 History cholecalciferol (vitamin D3) 25 25 mcg PO DAILY@1500 01/15/23 01/15/23 History mcg (1,000 unit) capsule colestipol 1 gram tablet 1 g PO BID 01/15/23 01/15/23 History flecainide 50 mg tablet 50 mg PO BID 01/15/23 01/15/23 History glucosamine 750 mg-chondr 600 1 ea PO DAILY@1500 01/15/23 01/15/23 History mg-Elias 50 mg-turmeric 125 mg tablets lysine 1,000 mg tablet 1,000 mg PO DAILY@1500 01/15/23 01/15/23 History mercaptopurine 50 mg tablet 50 mg PO BID 01/15/23 01/15/23 History mesalamine 1,000 mg rectal 1,000 mg LA HS PRN 01/15/23 01/15/23 History suppository pantoprazole 40 mg tablet,delayed 40 mg PO BID 01/15/23 01/15/23 History release psyllium husk 3.4 gram/5.4 gram 1 tbsp PO BID 01/15/23 01/15/23 History oral powder (Metamucil) rosuvastatin 10 mg tablet 10 mg PO HS 01/15/23 01/15/23 History turmeric 400 mg capsule 400 mg PO BID 01/15/23 01/15/23 History Allergies Allergy/AdvReac Type Severity Reaction Status Date / Time Sulfa (Sulfonamide Allergy Intermediate Verified 04/06/22 11:16 Antibiotics) gabapentin AdvReac leg Verified 01/15/23 09:11 swelling sertraline AdvReac Verified 01/15/23 09:11 Exam Narrative: Exam Narrative: Gen: no acute distress HEENT: NCAT EOMI mmm Neck: Supple CV: bradycardic normal s1 s2; III/ JACKELIN Lungs: CTAB Abd: Soft,nt, nd Neuro: Alert, oriented, CN grossly intact; nonfocal screening?exam Psych: appropriate affect MSK: age appropriate muscle mass Skin; Warm, dry no rash on face Const: Vital Signs, click to edit/add: Vital Signs - 24 hr 01/15/23 09:13 01/15/23 09:15 01/15/23 09:24 Temperature 96.8 F L Pulse Rate 52 L Pulse Rate [Right Pulse Oximeter] 53 L Pulse Rate [Right Radial] Respiratory Rate 14 Blood Pressure Blood Pressure [Le ft Arm] Blood Pressure [Le ft Upper Arm] 151/73 H Pulse Oximetry 99 96 98 Oxygen Delivery Nc thod Room Air 01/15/23 09:30 01/15/23 09:32 01/15/23 09:45 Temperature Pulse Rate 51 L 48 L 45 L Pulse Rate [Right Pulse Oximeter] Pulse Rate [Right Radial] Respiratory Rate Blood Pressure 137/72 Blood Pressure [Le ft Arm] Blood Pressure [Le ft Upper Arm] Pulse Oximetry 97 97 97 Oxygen Delivery Nc thod 01/15/23 09:47 01/15/23 10:00 01/15/23 10:01 Temperature Pulse Rate 48 L 49 L 50 L Pulse Rate [Right Pulse Oximeter] Pulse Rate [Right Radial] Respiratory Rate Blood Pressure 121/85 132/85 Blood Pressure [Le ft Arm] Blood Pressure [Le ft Upper Arm] Pulse Oximetry 96 96 95 Oxygen Delivery Me thod 01/15/23 10:15 01/15/23 10:16 01/15/23 10:30 Temperature Pulse Rate 44 L 46 L 43 L Pulse Rate [Right Pulse Oximeter] Pulse Rate [Right Radial] Respiratory Rate Blood Pressure 132/64 Blood Pressure [Le ft Arm] Blood Pressure [Le ft Upper Arm] Pulse Oximetry 97 97 96 Oxygen Delivery Me thod 01/15/23 10:31 01/15/23 10:45 01/15/23 10:46 Temperature Pulse Rate 44 L 43 L 42 L Pulse Rate [Right Pulse Oximeter] Pulse Rate [Right Radial] Respiratory Rate Blood Pressure 129/64 122/64 Blood Pressure [Le ft Arm] Blood Pressure [Le ft Upper Arm] Pulse Oximetry 97 99 97 [facility] 11[facility]00 01/15/23 11:01 01/15/23 11:15 Temperature Pulse Rate 47 L 47 L 46 L Pulse Rate [Right Pulse Oximeter] Pulse Rate [Right Radial] Respiratory Rate Blood Pressure 118/68 Blood Pressure [Le ft Arm] Blood Pressure [Le ft Upper Arm] Pulse Oximetry 98 98 98 Oxygen Delivery Me thod 01/15/23 11:16 01/15/23 11:30 01/15/23 11:32 Temperature Pulse Rate 45 L 49 L 46 L Pulse Rate [Right Pulse Oximeter] Pulse Rate [Right Radial] Respiratory Rate Blood Pressure 127/66 120/67 Blood Pressure [Le ft Arm] Blood Pressure [Le ft Upper Arm] Pulse Oximetry 99 99 99 Oxygen Delivery Me od 01/15/23 13:52 Temperature 98.1 F Pulse Rate Pulse Rate [Right Pulse Oximeter] Pulse Rate [Right Radial] 49 L Respiratory Rate 20 Blood Pressure Blood Pressure [Le ft Arm] 165/79 H Blood Pressure [Le ft Upper Arm] Pulse Oximetry 97 Oxygen Delivery Nc thod Room Air Hospitalist - H&P: Result Labs Labs: Short CBC 01/15/23 Range/Units 09:15 WBC 3.30 L (4.50-11.00) K/uL Hgb 12.7 L (13.5-17.5) gm/dL Hct 36.0 L (37.0-53.0) % Plt Count 200 (140-440) K/uL BMP 01/15/23 09:15 Sodium 141 Potassium 4.4 Chloride 105 Carbon Dioxide 29 BUN 18 Creatinine 0.7 Glucose 99 Calcium 9.6 Liver Function 01/15/23 Range/Units 09:15 Total Bilirubin 1.3 (0.1-1.5) mg/dL AST 26 (12-35) U/L ALT 18 (4-50) U/L Alkaline Phosphatase 59 (40-150) U/L Albumin 4.4 (3.3-5.0) g/dL Assessment and Plan Assessment and plan (1) Chest pain: Status: Acute (2) Aortic stenosis, severe: Status: Acute (3) Bradycardia: Status: Acute Plan Claudio Young is a 72 year old male with past medical history noted below including severe aortic stenosis (follows with [facility] Cardiology, has plan for TAVR and possible PPM in February) presenting for evalutation of chest discomfort. The patient is currently chest pain free and denies SOB. However, yesterday and this morning he had intermittent left sided chest pain that was dull. He also felt dizzy. He was at his cabin and riding horses as well. He presented to ED today where HR was noted to be in 40s. Initial Troponin Negative. EKG with sinus bradycardia. His case was discussed with [facility] who recommended hospital tele monitoring and repeat enzymes. He currently endorses no other symptoms. 1. Chest pain (resolved) 2. Hx of severe aortic stenosis 3. Sinus Bradycardia Plan -admit to obs -serial trop -echo -tele -prn morphine/nitro -hold flecainide for now given dizziness, sob, bradycardia -will need close [facility] follow up for expedited TAVR -npo midnight -TSH Code-full DVT ppx-low risk obs status
[2023-01-15] MEDS: ACETAMINOPHEN 325 MG TABLET 650 MG PO ×2 (17:08→22:55)
--- NOTE | 2023-01-15 18:50 | PC.NURSE ---
End of shift: A&O.Pt arrived to the floor around 1500. No reports of chest pain/ shoulder pain this shift. PRN Tylenol was given for a mild headache this afternoon. Per patient he reports feeling off. Up independently, he was encouraged to call if he feels worse. Tele- sinus bradycardia. Continuous pulse oximetry. VS on RA. NPO @ 0001 for Echo tomorrow.
[2023-01-15 19:11] LABS: Troponin I* < 0.01 ng/mL (0.01-0.04)
[2023-01-15] MEDS: SODIUM CHLORIDE 0.9 % (FLUSH) 10 ML SYRINGE 5 ML IVF (22:54)
[2023-01-15] MEDS: ROSUVASTATIN CALCIUM 10 MG TABLET PO (22:56)
[2023-01-15] MEDS: OMEPRAZOLE 20 MG CAPSULE DR 40 MG PO (22:57)
[2023-01-16 03:00] VITALS: BP 122/66; PULSE 53; RESP 20; O2SAT 97
--- NOTE | 2023-01-16 06:47 | PC.NURSE ---
END OF SHIFT NOTE: PT PLEASANT AND COOPERATIVE. A&Ox3. DENIES CP, SOB, N/V. C/O HEADACHE WITH LITTLE RELIEF FROM PRN TYLENOL. TELE READS NSR ? SINUS NELSON. AMBULATES INDEPENDENTLY WITHIN ROOM. VSS ON RA; AFEBRILE. RLE WITH +1 PITTING EDEMA. NPO SINCE MIDNIGHT. CPAP WORN OVERNIGHT FOR HONEY. CALL LIGHT WITHIN PT?S REACH.
[2023-01-16 07:00] VITALS: O2SAT 96
[2023-01-16 07:08] LABS: Troponin I* < 0.01 ng/mL (0.01-0.04)
[2023-01-16 07:51] VITALS: PULSE 52
[2023-01-16 08:00] VITALS: BP 129/74; PULSE 51; RESP 20; TEMP 36.6; O2SAT 98
[2023-01-16] MEDS: OMEPRAZOLE 20 MG CAPSULE DR 40 MG PO (09:22)
[2023-01-16] MEDS: SODIUM CHLORIDE 0.9 % (FLUSH) 10 ML SYRINGE 5 ML IVF (09:25)
[2023-01-16 12:00] VITALS: BP 124/70; PULSE 53; RESP 18; O2SAT 97
--- NOTE | 2023-01-16 13:52 | PC.NURSE ---
PATIENT'S VSS AND AFEBRILE. LS CLEAR. TELE THIS AM SINUS NELSON WITH RATE IN 50'S. DENIED PAIN OR SOB. AMBULATED IN HALLWAY INDEPENDENTLY AND O2 SATS 92-95%RA AND HEART RATE 60-80'S. DENIED SOB OR CP WITH EXERTION. TOLERATING REGULAR DIET. SALINE LOCK DC'D. REVIEWED DC INSTRUCTIONS WITH PATIENT AND HIS AND BOTH DENIED QUESTIONS OR CONCERNS. PATIENT DC'D HOME VIA .
--- NOTE | 2023-01-16 16:33 | P.DS_ITS ---
DS: Providers Provider Time Seen by Provider: :30 Date Seen: 01/16/23 Date of admission: 01/15/23 13:43 Primary care physician: Blayne Rosenberg MD Admitting Clinician: Stanislav Mcdaniels MD Attending Physician on discharge: Stanislav Mcdaniels MD Date of Discharge: 01/16/23 DS: Diagnosis Discharge Diagnosis (1) Chest pain: Status: Acute (2) Aortic stenosis, severe: Status: Acute (3) Bradycardia: Status: Acute DS: Summary Hospital Course Hospital Course: History of present illness: Claudio Young is a 72 year old male with past medical history noted below including severe aortic stenosis (follows with [facility] Cardiology, has plan for TAVR and possible PPM in February) presenting for evalutation of chest discomfort. The patient is currently chest pain free and denies SOB. However, yesterday and this morning he had intermittent left sided chest pain that was dull. He also felt dizzy. He was at his cabin and riding horses as well. He presented to ED today where HR was noted to be in 40s. Initial Troponin Negative. EKG with sinus bradycardia. His case was discussed with [facility] Cardiology who recommended hospital tele monitoring and repeat enzymes. He currently endorses no other symptoms. Patient remained symptom free throughout the remainder of hospitalization. Telemetry remarkable for the fact that his heart rate sometimes dipped down into the upper 30s. His flecainide was held throughout his hospital stay. We r esumed his flecainide at time of discharge at half the dose, previously on 50 mg twice daily, at discharge he was on 25 mg twice daily. Will require ongoing monitoring and follow-up for this with his hotel associate. Electrocardiogram continued to be negative. Biochemical markers including troponin I continue to be negative. Tolerated increased activity without recurrence of symptoms. Discharged home with follow-up with [facility]Note 3] Cardiology Service. Status at Discharge Functional status at discharge: independent ambulation Overall status at discharge: patient is back to baseline Time Spent with Patient Time attestation: Total time spent providing and/or coordinating discharge services: Time spent: Greater than 30 minutes Exam Narrative: Exam Narrative: Examined patient in his hospital room and as he was walking in the hallways. Appears comfortable and in no acute distress. Vision and hearing are grossly normal. Alert and oriented to self, place, time, situation. Friendly, articulate, cooperative. Mood and affect are congruent. Range of motion of both shoulders are symmetric. Unable to reproduce chest discomfort with palpation of chest anteriorly laterally or posteriorly. Lungs clear to auscultation without wheezing, rhonchi, or rales. Heart tones with regular rhythm, normal S1-S2. Grade 3/6 systolic murmur right upper sternal border. Abdomen is thin, active bowel sounds, soft, nontender. Independent in transfer, station, and gait. Extremities without edema. Skin is warm, dry, intact. Const: Vital Signs, click to edit/add: Vital Signs - 24 hr 01/15/23 18:13 01/15/23 19:00 01/15/23 20:24 Temperature 97.9 F Pulse Rate Pulse Rate [Pulse Oximeter] 55 L Respiratory Rate 20 Blood Pressure [Le ft Arm] 122/64 Pulse Oximetry 96 97 97 Oxygen Delivery Me thod Room Air 01/15/23 20:24 01/15/23 20:58 01/15/23 23:00 Temperature 97.9 F Pulse Rate 65 Pulse Rate [Pulse Oximeter] 55 L 50 L Respiratory Rate 20 18 Blood Pressure [Le ft Arm] 131/65 Pulse Oximetry 97 Oxygen Delivery Me thod Room Air 01/16/23 03:00 01/16/23 07:00 01/16/23 07:51 Temperature Pulse Rate 52 L Pulse Rate [Pulse Oximeter] 53 L Respiratory Rate 20 Blood Pressure [Le ft Arm] 122/66 Pulse Oximetry 97 96 Oxygen Delivery Me thod Room Air CPAP 01/16/23 08:00 01/16/23 08:00 01/16/23 12:00 Temperature 98 F Pulse Rate Pulse Rate [Pulse Oximeter] 51 L 51 L 53 L Respiratory Rate 20 20 18 Blood Pressure [Le ft Arm] 129/74 124/70 Pulse Oximetry 98 97 Oxygen Delivery Me thod Room Air CPAP Room Air CPAP Documenting provider has reviewed patient's vital signs: yes DS: Data Data Completed and Pending Labs on day of discharge: Labs from last 24 hours 01/16/23 01/15/23 06:15 18:36 Troponin I < 0.01 L < 0.01 L Imaging Chest x-ray: Attestation: I have reviewed the pertinent imaging results. Radiologist's impression: No acute cardiopulmonary process. Discharge Plan Discharge Disposition: Home, Self-Care Date of Admission: 01/15/23 13:43 Attending Provider on Discharge: Stanislav Mcdaniels Primary Care Provider: Blayne Rosenberg Condition: Improved Anticipated Discharge Date/Time: 01/16/23 12:30 Discharge Medications: New flecainide 50 mg tablet 25 mg PO Q12H Qty: 30 2RF Continued pantoprazole 40 mg tablet,delayed release (DR/EC) 40 mg PO BID mercaptopurine 50 mg tablet 50 mg PO BID balsalazide 750 mg capsule 2,250 mg PO TID colestipol 1 gram tablet 1 g PO BID rosuvastatin 10 mg tablet 10 mg PO HS mesalamine 1,000 mg suppository 1,000 mg ID HS PRN turmeric 400 mg capsule 400 mg PO BID Metamucil 3.4 gram/5.4 gram powder 1 tbsp PO BID Rx Instructions: mix into at least 8 oz of water or juice before administering cholecalciferol (vitamin D3) 25 mcg (1,000 unit) capsule 25 mcg PO DAILY@1500 acetaminophen [8 Hour Pain Reliever] 650 mg tablet extended release 1,300 mg PO TID [id number] 750 mg-600 mg- 50 mg-125 mg tablets, sequential 1 ea PO DAILY@1500 lysine 1,000 mg tablet 1,000 mg PO DAILY@1500 Discontinued flecainide 50 mg tablet 50 mg PO BID Discharge Orders: Discharge Order (Routine); Ordered 01/16/23 Ordered By: Stanislav Mcdaniels Patient Education: Flecainide (By mouth), Aortic Stenosis (DC), Transcatheter Aortic Valve Replacement (DC), Pacemaker (DC) Additional Instructions: 1. Work closely with your [facility][Note 3] cardiology service to address your evolving condition, 2. Return to your tertiary care hospital sooner rather than later if your condition worsens before you have follow-up with your [facility] cardiology service. Activity Level: Activity as Tolerated Discharge Diet: Regular Follow Up Appointments: Blayne Rosenberg MD [Primary Care Provider] - Forms: [employer] Info Instructions
== END 2023-01-16 12:40 | disposition home or self-care (01) ==
LOC: ED 12:59 → MEDSURG 13:43
PROVIDERS: Hospitalist; Admitting Provider Internal Medicine; Emergency Provider Family Medicine; PCP Family Medicine; Visit Provider Internal Medicine
DX: R07.9 Chest pain, unspecified (principal); I35.0 Nonrheumatic aortic (valve) stenosis; R00.1 Bradycardia, unspecified; I35.8 Other nonrheumatic aortic valve disorders; I51.7 Cardiomegaly; M79.10 Myalgia, unspecified site; R42 Dizziness and giddiness; R53.1 Weakness; Z86.16 Personal history of COVID-19
CPT/HCPCS: 36415; 71045; 80053; 83605; 83735; 83880; 84484; 85025; 85379; 86140; 87631; 93005; 94761; 99285; G0378; A9270